=== PATIENT | male | born 1980 | race Caucasian/White ===

== ENCOUNTER 2022-01-09 09:40 | Emergency (ER) | payer OTHER ==
[2022-01-09] MEDS ORDERED: Morphine 4 MG/ML Syringe IM ONE ×2 (10:25→14:58)
[2022-01-09] MEDS ORDERED: Acetaminophen/HYDROcodone 325-10 MG Tab PO ONE (12:56)
[2022-01-09] MEDS ORDERED: Morphine 15 MG Tab PO ONE (13:59)
[2022-01-09] MEDS ORDERED: HYDROmorphone 1 MG/ML Syringe IM ONE (14:51)
== END 2022-01-09 15:15 | disposition home or self-care (01) ==
LOC: JD.ED 09:40
DX: M54.42 Lumbago with sciatica, left side (principal); Z88.2 Allergy status to sulfonamides; Z88.5 Allergy status to narcotic agent
CPT/HCPCS: 96372; 99283; A9270; J1170; J2270; 99284